=== PATIENT | female | born 1940 | race Caucasian/White ===

== ENCOUNTER 2023-12-12 12:45 | Outpatient (CLI) | payer MEDICARE, OTHER | END 2023-12-12 12:46 | disposition home or self-care (01) | LOC: MADLAB 12:45 | PROVIDERS: ATTEND Family Medicine | DX: M54.6 Pain in thoracic spine (principal); M54.50 Low back pain, unspecified; M47.816 Spondylosis without myelopathy or radiculopathy, lumbar region; I70.0 Atherosclerosis of aorta; M41.9 Scoliosis, unspecified | CPT/HCPCS: 72070; 72100 ==